=== PATIENT | female | born 2005 | race Caucasian/White ===

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

== ENCOUNTER 2025-02-07 06:07 | Emergency (ER) | payer OTHER ==
[~2025-02-07] VITALS: Ht 160 cm; Wt 53.0 kg
[2025-02-07] MEDS ORDERED: TETRACAINE HCL 0.5% 4 ML BTL OS ONE (06:15)
[2025-02-07 06:30] VITALS: BP 111/73
[2025-02-07] MEDS ORDERED: ERYTHROMYCIN 3.5 GM HOME.PACK OP ONE (06:30)
== END 2025-02-07 06:31 | disposition home or self-care (01) ==
LOC: ED 06:07
DX: H00.015 Hordeolum externum left lower eyelid (principal); Z88.0 Allergy status to penicillin
CPT/HCPCS: 99283

== ENCOUNTER 2025-04-15 12:15 | Emergency (ER) | payer OTHER ==
[~2025-04-15] VITALS: Ht 160 cm; Wt 48.0 kg
[2025-04-15] MEDS ORDERED: BENADRYL25 MG PO (12:45)
[2025-04-15] MEDS ORDERED: ACETAMINOPHEN325 M1 PO (12:45)
[2025-04-15 13:28] VITALS: BP 111/68
== END 2025-04-15 13:28 | disposition home or self-care (01) ==
LOC: ED 12:15
DX: B34.9 Viral infection, unspecified (principal)
CPT/HCPCS: 99283

== ENCOUNTER 2025-05-15 21:22 | Emergency (ER) | payer OTHER ==
[~2025-05-15] VITALS: Ht 160 cm; Wt 50.0 kg
[~2025-05-15 21:22] MED LIST changes: +ACETAMINOPHEN325 M1 PO; +BENADRYL25 MG PO
--- OUTSIDE RECORDS SUMMARY | 2025-05-15 21:30 | XMS ---
PreManage Notification: ROMELIA CARRANZA Security Professor Of Music Events No recent Security Events currently on file CRITERIA MET - [facility] - 2 Visits in 30 Days CARE PROVIDERS -, [facility] Dentist: Lead Front End Developer Current [place] PHONE: [phone] [facility]: Multi-Specialty Current FAMILY PHONE: Unknown LIZ WEST Counselor: Mental Health Current PHONE: Unknown BUDDY MAZARIEGOS Counselor: Mental Health Current PHONE: [phone] [facility]: Unknown [facility] has no Care Guidelines for this patient. EIrvin VISIT COUNT (12 MO.) [address] [facility] TOTAL 9 NOTE: Visits indicate total known visits. ED/UCC VISIT TRACKING (12 MO.) 05/15/2025 21:23 [facility] [place] TYPE: Emergency COMPLAINT: - FOOT PAIN 04/24/2025 12:43 [facility] TYPE: Emergency COMPLAINT: - ABDOMINAL PAIN DIAGNOSES: - Allergy status to penicillin - Localized edema - Unspecified abdominal pain - Unspecified ovarian cyst, right side 04/15/2025 12:16 [facility] TYPE: Emergency COMPLAINT: - COLD SYPMTONS DIAGNOSES: - Cough, unspecified - Viral infection, unspecified 02/07/2025 06:07 [facility] [place] TYPE: Emergency COMPLAINT: - SKIN PROBLEM DIAGNOSES: - Allergy status to penicillin - Hordeolum externum left lower eyelid - Other specified disorders of eyelid 12/23/2024 16:28 [facility] [place] TYPE: Emergency COMPLAINT: - SKIN PROBLEM DIAGNOSES: - Allergy status to penicillin - Localized swelling, mass and lump, head - Unspecified contact dermatitis, unspecified cause 08/12/2024 18:03 [facility] [place] TYPE: Emergency COMPLAINT: - STITCH REMOVAL DIAGNOSES: - Allergy status to penicillin - Encounter for removal of sutures - Syncope and collapse 08/04/2024 07:52 [facility] [place] TYPE: Emergency COMPLAINT: - SUICIDAL IDEATIONS DIAGNOSES: - Allergy status to penicillin - Intentional self-harm by other sharp object, initial encounter - Laceration without foreign body of left wrist, initial encounter - Suicidal ideations 06/28/2024 12:29 [facility] [place] TYPE: Emergency COMPLAINT: - SUICIDAL IDEATIONS DIAGNOSES: - Allergy status to penicillin - Other halfway (current) drug therapy - Suicidal ideations 05/15/2024 23:33 [facility] [place] TYPE: Emergency COMPLAINT: - CAT SCRATCH EYE DIAGNOSES: - Allergy status to penicillin - Ocular pain, left eye - Other extermination inspector (current) drug therapy - Puncture wound without foreign body of left eyelid and periocular area, initial encounter - Scratched by cat, initial encounter INPATIENT VISIT TRACKING (12 MO.) No inpatient visits to display in this time frame [email or web address]
== END 2025-05-15 23:26 | disposition home or self-care (01) ==
LOC: ED 21:22
DX: M72.2 Plantar fascial fibromatosis (principal); Z88.1 Allergy status to other antibiotic agents
CPT/HCPCS: 73630; 99283